=== PATIENT | male | born 1990 | race Caucasian/White ===

== ENCOUNTER 2016-09-10 17:52 | Emergency (ER) | payer BC ==
--- NOTE | 2016-09-10 19:01 | UC ---
Skin Complaint HPI - HPI Summary HPI Summary: ONE WEEK OF CIRCULAR RASH UNDER RIGHT ARMPIT. NO FEVER. CONCERN THAT HE MAY HAVE BEEN BITTEN BY AND REMOVED TICK FROM AREA. NO NEW DETERGENTS OR PLANT EXPOSURE. - History of Current Complaint Time Seen by Provider: 09/10/16 18:34 Stated Complaint: RASH Hx Obtained From: Patient Onset/Duration: Gradual Onset, Lasting Weeks, Still Present Skin Exposure Onset/Duration: Hours Ago Onset Severity: Mild Current Severity: Mild Location: Discrete Character: Pruritus, Redness Aggravating: Nothing Alleviating: Nothing Associated Signs & Symptoms: Positive: Negative Related History: Possible Reaction to: Insect, Possible Reaction to: Environmental Exposure - Allergy/Home Medications Allergies/Adverse Reactions: Allergies Allergy/AdvReac Type Severity Reaction Status Date / Time No Known Allergies Allergy Verified 08/06/14 09:19 Review of Systems Constitutional: Negative Skin: Rash Eyes: Negative ENT: Negative Respiratory: Negative Cardiovascular: Negative Gastrointestinal: Negative Genitourinary: Negative Motor: Negative Neurovascular: Negative Musculoskeletal: Negative Neurological: Negative Psychological: Negative All Other Systems Reviewed And Are Negative: Yes PMH/Surg Hx/FS Hx/Imm Hx Previously Healthy: Yes - Surgical History Surgical History: Yes Surgery Procedure, Year, and Place: right hand surgery - Family History Known Family History: Negative: Blood Disorder - Social History Occupation: Employed Full-time Alcohol Use: None Substance Use Type: None Smoking Status (MU): Never Smoked Tobacco Physical Exam Triage Information Reviewed: Yes Appearance: Well-Appearing, No Pain Distress Vital Signs Reviewed: Yes Eye Exam: Normal ENT Exam: Normal ENT: Positive: Normal ENT inspection, Hearing grossly normal, Pharynx normal, TMs normal Dental Exam: Normal Neck exam: Normal Neck: Positive: Supple, Nontender Respiratory Exam: Normal Respiratory: Positive: Chest non-tender, Lungs clear, Normal breath sounds, No respiratory distress, No accessory muscle use Cardiovascular Exam: Normal Cardiovascular: Positive: RRR, No Murmur Abdominal Exam: Normal Musculoskeletal Exam: Normal Musculoskeletal: Positive: Strength Intact, ROM Intact Neurological Exam: Normal Psychological Exam: Normal Psychological: Positive: Normal Response To Family Skin: Positive: rashes - AREA OF CIRCULAR 5CM X 5CM DIAMETER ERYTHEMA UNDER RIGHT ARMPIT Course/Dx - Differential Diagnoses - Skin Complaint Differential Diagnoses: Allergic Reaction, Cellulitis, Contact Dermatitis, MRSA , Poison Imelda, Poison [place], Tick Born Illness, Tinea, Urticaria, Varicella Zoster , Viral Exanthem - Diagnoses Provider Diagnoses: POSSIBEL ERYTHEMA MIGRANS RIGHT AXILLA Discharge - Discharge Plan Condition: Stable Disposition: HOME Prescriptions: DOXYcycline CAP(*) [DOXYcycline 100MG CAP(*)] 100 mg PO BID #[id number] Patient Education Materials: Lyme Disease (ED), Tick Bite (ED) Referrals: Jose Angel Alexander MD [Primary Care Provider] -
[2016-09-10 19:04] VITALS: BP 133/77
== END 2016-09-10 18:55 | disposition home or self-care (01) ==
LOC: UCEAST 17:52
DX: R21 Rash and other nonspecific skin eruption (principal)
CPT/HCPCS: 99211; G0463